=== PATIENT | male | born 1985 | race African-American/Black ===

== ENCOUNTER 2020-03-15 22:51 | Emergency (ER) | payer OTHER ==
[~2020-03-15] VITALS: Ht 165.1 cm; Wt 96.2 kg
[~2020-03-15 22:51] MED LIST: NO HOME MEDS
[2020-03-16] MEDS ORDERED: HYDROXYZINE HCL50 MG PO (00:04)
[2020-03-16 00:20] VITALS: BP 132/81
--- NOTE | 2020-03-16 11:38 | EKG ---
[facility] [place] [address] ELECTROCARDIOGRAM REPORT Name: STEPHANIE,JAIRO Sharon Room [facility]: [facility] [id number] Admission: 03/15/20 Attend Phys: Discharge: 03/16/20 Date of : 83 Report #: [id number] THIS REPORT FOR: cc: ANIVAL - Kacy family physician/PCP FAM - No family physician/PCP Holger Macedo MD ~ THIS REPORT FOR: //name// [facility] ED Test Date: 2020-03-15 Test Time: 23:41:30 Pat Name: JAIRO BROWN Department: Room: Gender: [employer]: : 1985 Requested By: Alexis Simpson Order Number: [id number] MD: Holger Macedo Measurements Intervals [place] Rate: 67 P: 13 UT: 134 QRS: 10 QRSD: 83 T: 33 QT: 398 QTc: 420 Interpretive Statements Sinus rhythm No previous ECG available for comparison Electronically Signed On 03-16-2020 11:38:29 CDT by Holger Macedo [email or web address] <ELECTRONICALLY SIGNED> By: Holger Macedo MD 03/16/20 1138 40 40 Holger Macedo MD /TERRANCE
== END 2020-03-16 00:11 | disposition home or self-care (01) ==
LOC: ER 22:51
DX: R07.89 Other chest pain (principal); F41.9 Anxiety disorder, unspecified

== ENCOUNTER 2020-07-15 19:45 | Emergency (ER) | payer BC ==
[~2020-07-15] VITALS: Ht 165.1 cm; Wt 97.5 kg
[~2020-07-15 19:45] MED LIST changes: +HYDROXYZINE HCL50 MG PO
[2020-07-15] MEDS ORDERED: PROMETH-CODEIN 65 ML PO (20:53)
[2020-07-15] MEDS ORDERED: PREDNISONE 20 M20 M1 PO (20:53)
[2020-07-15 21:49] VITALS: BP 154/108
== END 2020-07-15 21:50 | disposition home or self-care (01) ==
LOC: ER 19:45
DX: R05 Cough (principal); R51.9 Headache, unspecified; R09.81 Nasal congestion; R19.7 Diarrhea, unspecified; M79.10 Myalgia, unspecified site; Z20.828 Contact with and (suspected) exposure to other viral communicable diseases

== ENCOUNTER 2020-07-18 10:18 | Emergency (ER) | payer BC ==
[~2020-07-18] VITALS: Ht 165.1 cm; Wt 97.5 kg
[~2020-07-18 10:18] MED LIST changes: +PREDNISONE 20 M20 M1 PO; +PROMETH-CODEIN 65 ML PO
[2020-07-18] MEDS ORDERED: AUGMENTIN 875-1 EACH PO (11:01)
[2020-07-18 11:50] VITALS: BP 139/72
== END 2020-07-18 12:43 | disposition home or self-care (01) ==
LOC: ER 10:18
DX: J06.9 Acute upper respiratory infection, unspecified (principal); B97.89 Other viral agents as the cause of diseases classified elsewhere; J32.9 Chronic sinusitis, unspecified; I10 Essential (primary) hypertension; Z79.899 Other long term (current) drug therapy; Z20.828 Contact with and (suspected) exposure to other viral communicable diseases